=== PATIENT | female | born 1990 | race Two or more races ===

== ENCOUNTER 2021-12-08 20:01 | Emergency (ER) | payer OTHER ==
[~2021-12-08] VITALS: Ht 160 cm; Wt 83.9 kg
[2021-12-08] MEDS ORDERED: ADDERALL 20 MG20 MG PO (20:31)
[2021-12-09] MEDS ORDERED: ZITHROMAX500 MG PO (01:48)
== END 2021-12-09 01:57 ==
LOC: ER 20:01
DX: J02.9 Acute pharyngitis, unspecified (principal); A49.3 Mycoplasma infection, unspecified site; Z20.822 Contact with and (suspected) exposure to COVID-19; Z88.0 Allergy status to penicillin